=== PATIENT | male | born 1960 | race Caucasian/White ===

== ENCOUNTER 2018-10-26 12:15 | Outpatient (CLI) | payer OTHER, SELFPAY ==
[2018-10-26 13:25] LABS: Anion Gap 7.1 mmol/L (3-11); BUN 19 mg/dL (7-18); CO2 30.9 mmol/L (21.0-32.0); Calcium 9.1 mg/dL (8.5-10.1); Chloride 101 mmol/L (98-107); Glucose 82 mg/dL (70-100); Potassium 3.8 mmol/L (3.5-5.1); Sodium 139 mmol/L (136-145)
== END 2018-10-26 12:35 ==
PROVIDERS: PCP Family Medicine; Visit Provider Family Medicine
DX: I10 Essential (primary) hypertension (principal)
CPT/HCPCS: 36415; 80048

== ENCOUNTER 2019-08-09 00:43 | Outpatient (CLI) | payer OTHER, SELFPAY ==
--- NOTE | 2019-08-09 09:15 | DI.MAMMO_ITS ---
EXAM: US BREAST LT COMPLETE CLINICAL HISTORY: LUMP/MASS OF LEFT BREAST, N63.20 TECHNIQUE: Ultrasound performed using standard protocol. COMPARISON: No exams were available for comparison FINDINGS: Bilateral mammogram: A marker was placed over the palpable abnormality in the subareolar region of th e left breast. The left breast is composed of scattered fibroglandular densities. The right breast i s composed of fatty density. The left breast shows increased tissue development in the sub areolar r egion. The findings are consistent with gynecomastia. The right breast shows minimal subareolar j[address] tissue development. There is no suspicious mass or suspicious microcalcifications. Left breast ultrasound: There is no evidence of suspicious mass. There is small area of decreased at tenuation when compared with the surrounding fat in the subareolar region, consistent with gynecomast ia. impression: Bi-rads category 2, negative mammogram and left breast ultrasound with benign findings of gynecomasti a. Clinical follow-up is recommended. BI-RADS Cat 2 - Benign Findings. Breast Density - Category B - Scattered areas of fibroglandular density
== END 2019-08-09 01:03 ==
PROVIDERS: PCP Family Medicine; Visit Provider Internal Medicine
DX: N63.20 Unspecified lump in the left breast, unspecified quadrant (principal); N62 Hypertrophy of breast; N64.59 Other signs and symptoms in breast
CPT/HCPCS: 76642; 77062; 77066; G0279

== ENCOUNTER 2021-02-28 09:50 | Outpatient (REF) | payer MEDICAID, SELFPAY ==
[2021-02-28 12:12] LABS: ALT 32 U/L (16-63); AST 22 U/L (15-37); Albumin 3.9 g/dL (3.4-5.0); Alkaline Phosphatase 81 U/L (46-116); BUN 25 mg/dL (7-18); Bilirubin, Total 0.3 mg/dL (0.2-1.0); CREATININE 0.9 mg/dL (0.70-1.30); Calculated LDL 117 mg/dL (<100); Chloride 107 mmol/L (98-107); Cholesterol 173 mg/dL (<200); Glucose 94 mg/dL (74-106); HDL Cholesterol 45 mg/dL (40-60); Potassium 4.1 mmol/L (3.5-5.1); Sodium 143 mmol/L (136-145); Total Protein 6.6 g/dL (6.4-8.2); Triglyceride 55 mg/dL (<150)
== END 2021-02-28 09:51 | disposition home or self-care (01) ==
LOC: LBN 09:50
DX: I10 Essential (primary) hypertension (principal); Z13.220 Encounter for screening for lipoid disorders; Z00.00 Encounter for general adult medical examination without abnormal findings
CPT/HCPCS: 80053; 80061

== ENCOUNTER 2023-03-13 02:38 | Outpatient (CLI) | payer MEDICAID, SELFPAY ==
[2023-03-13 09:58] LABS: Calculated LDL 129 mg/dL (<100); Cholesterol 194 mg/dL (<200); HDL Cholesterol 46 mg/dL (40-60); Triglyceride 99 mg/dL (<150)
== END 2023-03-13 02:39 | disposition home or self-care (01) ==
PROVIDERS: PCP Nurse Practitioner Family; Visit Provider Nurse Practitioner Family
DX: E78.5 Hyperlipidemia, unspecified (principal)
CPT/HCPCS: 36415; 80061

== ENCOUNTER 2023-09-23 14:52 | Outpatient (REF) | payer MEDICARE, SELFPAY ==
[2023-09-23 17:07] LABS: ALT 31 U/L (16-63); AST 21 U/L (15-37); Albumin 3.8 g/dL (3.4-5.0); Alkaline Phosphatase 68 U/L (46-116); Anion Gap 9.6 mmol/L (3-11); BUN 23 mg/dL (7-18); Bilirubin, Total 0.5 mg/dL (0.2-1.0); CO2 26.4 mmol/L (21.0-32.0); Calculated LDL 114 mg/dL (<100); Chloride 106 mmol/L (98-107); Cholesterol 171 mg/dL (<200); Estimated GFR 83.52 (mL/min/1.73m2); Glucose 96 mg/dL (74-106); HDL Cholesterol 48 mg/dL (40-60); Potassium 3.9 mmol/L (3.5-5.1); Sodium 142 mmol/L (136-145); Total Protein 6.7 g/dL (6.4-8.2); Triglyceride 45 mg/dL (<150)
== END 2023-09-23 14:53 | disposition home or self-care (01) ==
LOC: LBN 14:52
PROVIDERS: PCP Nurse Practitioner Family; Visit Provider Nurse Practitioner Family
DX: E78.5 Hyperlipidemia, unspecified (principal)
CPT/HCPCS: 80053; 80061

== ENCOUNTER → 2023-09-24 02:50 | Outpatient (CLI) | payer MEDICARE, SELFPAY ==
--- NOTE | 2023-09-24 | DI.MAMMO_ITS ---
Exam(s) US BREAST RT COMPLETE MG MAMMO DIAGNOSTIC BI EXAM: MG MAMMO DIAGNOSTIC BI AND COMPLETE RIGHT BREAST ULTRASOUND CLINICAL HISTORY: R92.8 abn findings on DI of breast, N63.0 Lump rt breast,change in tissue. TECHNIQUE: Bilateral CC and MLO mammographic images were obtained with 3D tomosynthesis technique an d utilizing computer aided detection (CAD). Complete right breast ultrasound was performed including all 4 quadrants, the retroareolar region, an d the right axilla. COMPARISON: Prior breast imaging studies of July 2020 reviewed. He had gynecomastia at that time predominantly left-sided. FINDINGS: DIAGNOSTIC BILATERAL MAMMOGRAM: The amount of retroareolar gynecomastia on the left side is slightly decreased when compared to 2019. However, there is now more prominent retroareolar gynecomastia on the right side. There are no spiculated masses nor malignant-appearing microcalcification groups in either breast. N o new architectural distortion or skin thickening-traction. COMPLETE RIGHT BREAST ULTRASOUND: No evidence of solid or significant cystic lesions in the right breast. Retroareolar region appears unremarkable. Scanning of the right axilla is negative for adenopathy. IMPRESSION: Benign findings. Mammographically there is increased gynecomastia in the retroareolar right breast w hen compared to the prior mammogram of July 2019. The amount of gynecomastia in the left breast is slightly decreased from the 2019 study. Appropriate follow-up is to determine if there is an underlying cause (such as medications) which can be moderated. The patient was informed of the findings and follow-up recommendations by myself prior to leaving the department today. BI-RADS Category 2 - Benign Findings Breast Density - Category B - Scattered areas of fibroglandular density Breast density Category C or D implies that the patient has dense breast tissue. Dense breast tissue can make it harder to find cancer on a mammogram. Dense breast tissue is also associated with an incr eased risk of breast cancer. This information about the result of the mammogram report was provided to the patient to raise their awareness. Use this report when you speak with the patient about their risks for breast cancer, which includes their family history. At that time, you may recommend additional screening tests (Ultrasoun d or MRI) as these tests may add significant information. A negative radiographic report should not delay biopsy if a dominant or clinically suspicious mass is present. Up to ten percent of cancers are not identified on mammography. A negative report may reinforce clinical impression. Adenosis and dense breasts may obscure an underlying neoplasm. False positive reports average 6 to 10%. Patient will receive a letter notifying them of these results.
== END ==
PROVIDERS: PCP Nurse Practitioner Family; Visit Provider Nurse Practitioner Family
DX: R92.8 Other abnormal and inconclusive findings on diagnostic imaging of breast (principal); Z12.31 Encounter for screening mammogram for malignant neoplasm of breast
CPT/HCPCS: 76642; 77062; 77066; G0279

== ENCOUNTER 2024-09-23 21:29 | Outpatient (REF) | payer MEDICARE, SELFPAY ==
[2024-09-23 22:05] LABS: ALT 27 U/L (16-63); AST 20 U/L (15-37); Albumin 3.8 g/dL (3.4-5.0); Alkaline Phosphatase 72 U/L (46-116); Anion Gap 8.1 mmol/L (3-11); BUN 16 mg/dL (7-18); Bilirubin, Total 0.6 mg/dL (0.2-1.0); CO2 26.9 mmol/L (21.0-32.0); CREATININE 0.9 mg/dL (0.70-1.30); Calcium 8.9 mg/dL (8.5-10.1); Calculated LDL 96 mg/dL (<100); Chloride 105 mmol/L (98-107); Cholesterol 175 mg/dL (<200); Estimated GFR 94.19 (mL/min/1.73m2); Glucose 91 mg/dL (74-106); HDL Cholesterol 43 mg/dL (>or=40); Potassium 3.9 mmol/L (3.5-5.1); Sodium 140 mmol/L (136-145); Total Protein 6.7 g/dL (6.4-8.2); Triglyceride 181 mg/dL (<150)
== END 2024-09-23 21:30 | disposition home or self-care (01) ==
LOC: LBN 21:29
PROVIDERS: PCP Nurse Practitioner Family; Visit Provider Nurse Practitioner Family
DX: E78.5 Hyperlipidemia, unspecified (principal); Z87.891 Personal history of nicotine dependence; Z00.00 Encounter for general adult medical examination without abnormal findings
CPT/HCPCS: 80053; 80061

== ENCOUNTER 2024-10-03 02:13 | Outpatient (CLI) | payer MEDICARE, SELFPAY ==
--- NOTE | 2024-10-03 06:15 | DI.US_ITS ---
Exam(s) US AAA SCREENING EXAM: US AAA SCREENING CLINICAL HISTORY: screening for aaa, former smoker, Z87.891 COMPARISON: US US BREAST RT COMPLETE from 09/24/2023 FINDINGS: There is no evidence of abdominal significant aortic aneurysm. The maximum diameter of the abdominal aorta is 2.2 cm and the distal aorta tapers normally. Visualized common iliac arteries exhibit mild ectasia IMPRESSION: No evidence of significant abdominal aortic aneurysm. DATA REPOSITORY:
== END 2024-10-03 02:33 ==
LOC: DI 02:13
PROVIDERS: PCP Nurse Practitioner Family; Visit Provider Nurse Practitioner Family
DX: Z87.891 Personal history of nicotine dependence (principal); Z13.6 Encounter for screening for cardiovascular disorders
CPT/HCPCS: 76706